=== PATIENT | female | born 1980 | race Caucasian/White ===

== ENCOUNTER 2017-06-25 03:29 | Inpatient (IN) | payer BC ==
[~2017-06-25] VITALS: Ht 157.5 cm; Wt 95.2 kg
[2017-06-25 04:06] LABS: MCV 78.8 FL (83-99); MEAN PLAT.VOLUME 10.7 uM^3 (9.5-12.4); PLATELET COUNT 429 K/uL (156-360); RBC DIS.WIDTH-CV 14.8 % (11.8-14.6); RBC DIS.WIDTH-SD 41.9 % (39-53); RED BLOOD COUNT 5.46 M/uL (3.80-5.20)
[2017-06-25 04:13] LABS: ADD MIUA? YES; BILIRUBIN NEGATIVE; BLOOD SMALL; COLOR YELLOW ((YELLOW)); GLUCOSE (STRIP) 50; KETONES 20; LEUKOCYTES NEGATIVE; NITRITE NEGATIVE; PROTEIN (STRIP) 100; SPECIFIC GRAVITY 1.014 (1.000-1.030); UROBILINOGEN 0.2 MG/DL (0.2-1.0)
[2017-06-25 04:17] LABS: CHLORIDE 102 mEq/L (99-109); POTASSIUM 3.6 mEq/L (3.7-5.4); SODIUM 133 mEq/L (136-147)
[2017-06-25 04:19] LABS: GLUCOSE 172 mg/dL (70-99)
[2017-06-25 04:20] LABS: ANION GAP 11 MEQ/L (2-14)
[2017-06-25 04:21] LABS: TOTAL BILIRUBIN 0.5 mg/dL (0.0-1.0)
[2017-06-25 04:23] LABS: ALKALINE PHOSPHATASE 262 IU/L (3-129); GFR ESTIMATE (CALCULATED) > 59 mL/min/
[2017-06-25 04:23] LABS: BACTERIA NONE SEEN /HPF; EPITHELIAL CELLS RARE /HPF; MUCUS TRACE /LPF; UCUL ADDED? NO; WHITE BLOOD CELLS 0-5 /HPF (0-5)
[2017-06-25 04:24] LABS: UREA NITROGEN (BUN) 8 mg/dL (9-23)
[2017-06-25 04:50] LABS: QUANTITATIVE HCG < 4.0 MIU/ML
[2017-06-25 05:10] LABS: LIPASE 17 U/L (1.0-51.0)
[2017-06-25] MEDS ORDERED: QUASENSE1 EACH PO (09:12)
[2017-06-25] MEDS ORDERED: LEVOCETIRIZINE D5 MG PO (09:12)
[2017-06-25] MEDS ORDERED: AMLODIPINE BESY10 MG PO (09:13)
[2017-06-25] MEDS ORDERED: HYDROCHLOROTHIA25 MG PO (09:13)
[2017-06-25 12:18] VITALS: BP 156/93
[2017-06-25 15:56] VITALS: BP 146/86
[2017-06-25 19:40] VITALS: BP 154/92
[2017-06-26 03:51] VITALS: BP 137/80
[2017-06-26 07:07] LABS: EOSINOPHIL (%) 0.7 % (0-5); EOSINOPHIL COUNT 0.1 K/uL (0-0.3); HEMATOCRIT 40.8 % (36.0-46.0); IMMATURE GRANULOCYTE (%) 0.5 % (0.0-0.7); IMMATURE GRANULOCYTE COUNT 0.1 K/uL; INSTRUMENT ABS NEUTROPHIL CT 12.2 K/uL; LYMPHOCYTE COUNT 1.7 K/uL (1.0-2.8); MCH 26.2 PG (29.0-34.0); MCHC 33.3 G/DL (30.0-36.0); MCV 78.6 FL (83-99); MEAN PLAT.VOLUME 11.2 uM^3 (9.5-12.4); MONOCYTE (%) 8.1 % (3-12); MONOCYTE COUNT 1.2 K/uL (0-0.8); NEUTROPHIL (%) 79.5 % (45-76); NEUTROPHIL COUNT 12.2 K/uL (1.8-6.4); PLATELET COUNT 371 K/uL (156-360); RBC DIS.WIDTH-CV 14.8 % (11.8-14.6); RED BLOOD COUNT 5.19 M/uL (3.80-5.20); WHITE BLOOD COUNT 15.3 K/uL (4.1-10.2)
[2017-06-26 07:52] LABS: Estimated Average Glucose 123 mg/dL (70-123); HEMOGLOBIN A1c (GLYCOHEMOGLOB) 5.9 % HGB (Below 5.7)
[2017-06-26 07:54] LABS: ALKALINE PHOSPHATASE 332 IU/L (3-129); ANION GAP 11 MEQ/L (2-14); CHLORIDE 101 MEQ/L (99-109); GFR ESTIMATE (CALCULATED) > 59 mL/min/; POTASSIUM 3.6 MEQ/L (3.7-5.4); SAMPLE HEMOLYSIS CHECK 0; SAMPLE ICTERIC CHECK 0; SAMPLE LIPEMIA CHECK 0; SODIUM 137 MEQ/L (136-147); TOTAL BILIRUBIN 0.8 MG/DL (0.0-1.0); UREA NITROGEN (BUN) 7 mg/dL (9-23)
[2017-06-26 07:55] LABS: GLUCOSE 107 mg/dL (70-99)
[2017-06-26 08:43] VITALS: BP 148/72
[2017-06-26 10:25] VITALS: BP 148/72
[2017-06-26] MEDS ORDERED: TRAMADOL HCL50 MG PO (11:53)
[2017-06-27 10:52] LABS: HBSG INDEX 0.19
[2017-06-27 10:53] LABS: ANTI-HEPATITIS A VIRUS (IGM) Nonreactive; ANTI-HEPATITIS B CORE (IGM) Nonreactive; HAV INDEX 0.13; HBC IgM INDEX 0.07
== END 2017-06-26 15:53 | disposition home or self-care (01) | DRG 443 ==
LOC: EME 03:29 → EDOF 08:38 → ENRESERV 09:01 → EDOF 09:01 → ENRESERV 11:11 → 3EAST 11:55
PROVIDERS: Emergency Medicine; Hospitalist
DX: D13.4 Benign neoplasm of liver (principal); D49.0 Neoplasm of unspecified behavior of digestive system; D18.03 Hemangioma of intra-abdominal structures; K76.89 Other specified diseases of liver; I10 Essential (primary) hypertension; E66.9 Obesity, unspecified; K76.0 Fatty (change of) liver, not elsewhere classified; D72.829 Elevated white blood cell count, unspecified; Z68.38 Body mass index [BMI] 38.0-38.9, adult
CPT/HCPCS: 74177; 74183; 80053; 80074; 81003; 82105 90; 83036; 83690; 84702; 85025; 85027; 99281; 99284; J2270; J2405; J3010; J7030